=== PATIENT | male | born 1965 | race Caucasian/White ===

== ENCOUNTER 2024-08-31 05:31 | Observation (INO) ==
--- NOTE | 2024-08-22 14:40 | Anesthesiology Consultation ---
Date of Service August 22, 2024 Assessment & Plan (1) Encounter for pre-operative examination: - Check BSG DOS - Infectious disease screening: Per assessment on 08/22/24- No known recent infectious disease contacts or current infectious disease symptoms. - S/P cystoscopy, laser lithotripsy (01/20/24): LMA#4 at [facility]. No issues noted per post-op anesthesia progress note. Chart Review Chart Review: Acceptable Risk for Surgery and Patient NOT seen in Pre Admission Testing History Surgery Operation Date: 08/31/24 07:30 Proposed Procedures p Robotic Assisted Laparoscopic Radical Retropubic Prostatectomy, Possible Open, Possible Pelvic Lymph Node Dissection - Simón Darby MD Height/Weight Height: 5 ft 9 in Weight: 81.647 kg Allergies Allergy/AdvReac Type Severity Reaction Status Date / Time No Known Allergies Allergy Verified 08/22/24 13:54 Medications Home Medications Medication Instructions Recorded Confirmed Last Taken cholecalciferol (vitamin D3) 25 50 mcg PO QAM 10/08/23 08/22/24 01/19/24 05:00 mcg (1,000 unit) capsule losartan 100 mg tablet 100 mg PO QAM 10/08/23 08/22/24 01/19/24 05:00 metformin 500 mg tablet,extended 500 mg PO QPM 10/08/23 08/22/24 01/19/24 17:00 release 24 hr omeprazole 20 mg capsule,delayed 20 mg PO QAM 10/08/23 08/22/24 01/19/24 05:00 release tramadol 50 mg tablet 50 mg PO BID PRN Pain 10/08/23 08/22/24 01/19/24 05:00 Past Medical History Medical History Adrenal adenoma Abd/Pelvis CT 12/29/23: Stable 1.7 cm left adrenal adenoma Aneurysm of right renal artery Abd/Pelvis CT 12/29/23: Stable 1.7 cm Right Renal artery aneurysm Monitoring- stable/unchanged x 5 years per patient's BPH (benign prostatic hyperplasia) Chronic prostatitis Per records Diverticular disease Hx diverticulitis (-12/2023) > treated/resolved DM type 2 (diabetes mellitus, type 2) DM vs prediabetic Taking Metformin GERD (gastroesophageal reflux disease) Hearing loss Bilateral hearing aids History of kidney stones HTN (hypertension) Osteoarthritis Prostate cancer 06/09/2024- No chemo/XRT [facility] Sleep apnea Unable to tolerate CPAP Past Family History Family History Other No family history of adverse response to anesthesia Past Surgical History Surgical History History of ear surgery Impacted ear wax History of lithotripsy 12/23/2023 [facility]; LMA iGel #4, atraumatic x 1 Hx of prostate biopsy 05/2024 Social History Smoking Status: Never smoker Do You Dip or Chew Tobacco: No Hx Alcohol Use: No Hx Substance Use: No substance use type: does not use Lab Results Anesthesia Preop Results Results Anesthesia Widget: WBC 6.20 K/ul (4.8-10.8) 08/21/24 Hgb 14.9 g/dl (14.0-18.0) 08/21/24 Hct 44.7 % (42.0-52.0) 08/21/24 Plt 222 K/uL (130-400) 08/21/24 Na 137 mmol/L (136-145) 08/21/24 K 4.1 mmol/L (3.5-5.1) 08/21/24 Cl 104 mmol/L (98-107) 08/21/24 CO2 27 mmol/L (21-32) 08/21/24 BUN 24 mg/dl (6-23) H 08/21/24 Creat 1.53 mg/dl (0.6-1.4) H 08/21/24 Glucose Level 93 mg/dl (70-99(Fasting)) 08/21/24 Testing Laboratory Results Urine culture (08/21/24): no growth Electrocardiogram Date: 12/11/23 Findings: + NSR @ (73bpm) Early transition. Compared to 09/28/22, atrial enlargement criteria no longer present. T waves are more normal. Chest X-Ray Date: 12/11/23 Findings: + NAD Stress Test Date: 10/13/22 Type: nuclear Findings: + WNL myocardial perfusion imaging normal.
[2024-08-31] MEDS: HEPARIN SOD 5,000 UNIT/0.5 ML VIAL SC SCH (06:30)
[2024-08-31] MEDS: LACTATED RINGER'S 1,000 ML IV SCH (06:31)
[2024-08-31] MEDS: LR 15ML/HR IV SCH (06:31)
[2024-08-31] MEDS ORDERED: ATROPINE SULFATE 0.1 MG/ML 10ML SYR IV PRN (06:55)
[2024-08-31] MEDS ORDERED: HYDROmorphone INJ 1 MG/ML SYRINGE IV PRN (06:55)
[2024-08-31] MEDS ORDERED: ePHEDrine sulfate 50 MG/ML AMP IV PRN (06:55)
[2024-08-31] MEDS ORDERED: ROCURONIUM BROMIDE 10 MG/ML 5 ML VIAL IV ONE (06:57)
[2024-08-31] MEDS ORDERED: DEXAMETHASONE SOD INJ 4 MG/ML VIAL ONE (06:57)
[2024-08-31] MEDS ORDERED: PROPOFOL IV EMULSION 10 MG/ML 20 ML VIAL IV ONE (06:57)
[2024-08-31] MEDS ORDERED: ONDANSETRON INJ 2 MG/ML 2 ML VIAL ONE (06:57)
[2024-08-31] MEDS ORDERED: LIDOCAINE 2% 2 ML VIAL/AMP(20MG/ML) INFIL ONE (06:57)
[2024-08-31] MEDS ORDERED: SUGAMMADEX SODIUM 200 MG/2 ML VIAL IV ONE (06:58)
[2024-08-31] MEDS ORDERED: MIDAZOLAM HCL 1 MG/ML 2ML VIAL ONE (06:58)
[2024-08-31] MEDS ORDERED: KETAMINE HCL 10MG/ML SYR ONE (06:58)
[2024-08-31] MEDS ORDERED: fentaNYL citrate PF 100 MCG/2 ML VIAL ONE ×2 (06:58→09:08)
--- NOTE | 2024-08-31 07:13 | History & Physical Report ---
Date of Service August 31, 2024 Assessment & Plan (1) Prostate cancer: Plan: We reviewed the plan for robotic radical prostatectomy, possible bilateral pelvic lymph node dissection. We reviewed risks and benefits of surgery. He expressed understanding and would like to proceed with surgery. History of Present Illness Primary Care Provider: Germán Dumont This is a 59-year-old male followed by urology for prostate cancer. He presents to the OR today for robot-assisted radical prostatectomy. He denies any changes in his health. Allergies Allergy/AdvReac Type Severity Reaction Status Date / Time No Known Allergies Allergy Verified 08/31/24 06:05 Home Medications Medication Instructions Recorded Confirmed Type cholecalciferol (vitamin D3) 25 50 mcg PO QAM 10/08/23 08/31/24 History mcg (1,000 unit) capsule losartan 100 mg tablet 100 mg PO QAM 10/08/23 08/31/24 History metformin 500 mg tablet,extended 500 mg PO QPM 10/08/23 08/31/24 History release 24 hr omeprazole 20 mg capsule,delayed 20 mg PO QAM 10/08/23 08/31/24 History release tramadol 50 mg tablet 50 mg PO BID PRN Pain 10/08/23 08/31/24 History Past Med/Surg History Problem List Encounter for pre-operative examination Microscopic hematuria Medical History Adrenal adenoma Abd/Pelvis CT 12/29/23: Stable 1.7 cm left adrenal adenoma Aneurysm of right renal artery Abd/Pelvis CT 12/29/23: Stable 1.7 cm Right Renal artery aneurysm Monitoring- stable/unchanged x 5 years per patient's BPH (benign prostatic hyperplasia) Chronic prostatitis Per records Diverticular disease Hx diverticulitis (-12/2023) > treated/resolved DM type 2 (diabetes mellitus, type 2) DM vs prediabetic Taking Metformin GERD (gastroesophageal reflux disease) Hearing loss Bilateral hearing aids History of kidney stones HTN (hypertension) Osteoarthritis Prostate cancer 06/09/2024- No chemo/XRT [facility] Sleep apnea Unable to tolerate CPAP Surgical History History of ear surgery Impacted ear wax History of lithotripsy 12/23/2023 [facility]; LMA iGel #4, atraumatic x 1 Hx of prostate biopsy 05/2024 Family History Other No family history of adverse response to anesthesia Social History Smoking Status: Never smoker Second Hand Exposure: No; Do You Dip or Chew Tobacco: No; Tobacco Cessation Education Requested by Patient: No Hx Alcohol Use: No Hx Substance Use: No Preferred Language: [place] Citizen Communication Ability: Effective Food Assembler Required: No Beliefs That Will Affect Care: None Current Living Situation: Spouse Other Information That Helps Us Care for You: No Feels Safe at Home: Yes Safety Concerns: Feels Safe At This Time Assistive Devices: Glasses and Hearing Aid - Bilateral Physical Exam Physical Exam: Well-appearing, NAD Results & Data Vital Signs (Past 12 Hours) Vital Signs Temp Pulse Resp BP Pulse Ox O2 Del Method 08/31/24 06:03 37 C 71 20 139/93 99 Room Air
[2024-08-31] MEDS: ceFAZolin 2000MG 2,000 MG/15 ML SYR IV SCH ×2 (07:53→16:20)
[2024-08-31] MEDS: BUPIVACAINE 0.5 % 5 MG/1 ML MPF 30ML VIAL ONE (10:44)
--- NOTE | 2024-08-31 11:07 | Post Operative Brief Note ---
PG Immediate Post Op with CF Date of Surgery August 31, 2024 Pre & Post Diagnosis Operation Date: 08/31/24 07:30 Pre-Op Diagnosis: Prostate Cancer Post-Op Diagnosis: Prostate Cancer I identified the patient and participated in the time-out.: Yes Procedure Operation Date: 08/31/24 07:30 Actual Procedures p Robotic Assisted Laparoscopic Radical Retropubic Prostatectomy, Pelvic Lymph Node Dissection - Simón Darby MD Surgeon Simón Darby MD Tableau Report Developer PHYLLIS Poole Estimated Blood Loss 25 Findings Consistent with Post-Op Diagnosis Specimens Specimen Description: A.) Periprosthetic Fat B.) right Pelvic Lymph nodes C.) left Pelvic Lymph nodes D.) Prostate and Seminal Vesicles Drains Lovett Catheter (18f 10cc silcone) Anesthesia Type General Complications none Disposition Accompanied Patient To Recovery: Yes Disposition: Recovery Room Overlapping Procedure I was present for: the critical portions of procedure.
--- NOTE | 2024-08-31 11:29 | Operative Report ---
PG Post Operative Report Pre & Post Diagnosis Operation Date: 08/31/24 07:30 Pre-Op Diagnosis: Prostate Cancer Post-Op Diagnosis: Prostate Cancer I identified the patient and participated in the time-out.: Yes Procedure Operation Date: 08/31/24 07:30 Actual Procedures p Robotic Assisted Laparoscopic Radical Retropubic Prostatectomy, Pelvic Lymph Node Dissection(Not Applicable) - Simón Darby MD Surgeon Simón Darby MD Warehouseman PHYLLIS Poole Estimated Blood Loss 25 Findings Consistent with Post-Op Diagnosis Specimens 1) periprostatic fat 2) right pelvic lymph nodes 3) left pelvic lymph nodes 4) prostate, vas deferens, seminal vesicles Drains Lovett catheter per urethra Anesthesia Type General Complications none Disposition Accompanied Patient To Recovery: Yes Disposition: Recovery Room Indications This is a 59-year-old male followed by urology for prostate cancer. He presents the OR today for robotic radical prostatectomy. Description of Procedure The patient was identified in the preoperative holding area and informed consent was confirmed. He was then brought to the operating room where general anesthesia was initiated. He was placed supine on the operating room table with all pressure points appropriately padded. His abdomen and genitalia were prepped and draped in the usual sterile fashion and a timeout was performed. A 2 cm incision was made above the umbilicus and then a Veress needle was used to obtain access to the abdomen. Proper position was confirmed with the drop test and low initial insufflation pressure. The abdomen was insufflated with CO2 to a pressure of 15 mmHg. An 8 mm robotic port was placed in the incision and the robotic camera was inserted. The abdominal cavity was surveyed, demonstrating no injury to intra-abdominal contents. There was some scar tissue adhesive in the right colon to the pelvic sidewall.. The remaining robotic ports were placed under direct visualization, with 2 robotic ports on the left side and 1 robotic port on the right. A 5 mm sales assistants and salespersons port was placed in the right upper quadrant. The robot was then docked. I sharply divided the adhesions in the right lower quadrant to facilitate placement of a 12 mm sales assistants and salespersons port. Using electrocautery, the bladder was then dropped from the anterior wall of the abdomen, exposing the space of Retzius. This dissection was carried down to expose the pelvic brim and subsequently the anterior surface of the prostate and the endopelvic fascia. The fat overlying the anterior of the prostate was removed and sent for pathologic analysis, labeled as 'periprostatic fat'. The endopelvic fascia was then divided on each side to expose the lateral aspects of the prostate and the lateral aspects of the pedicles. A single 3-0 V-Loc suture was used to ligate the dorsal venous complex to prevent backbleeding in subsequent steps. The fourth arm of the robot was then used to put some gentle traction on the bladder, and the bladder neck was identified. Using electrocautery, the anterior bladder neck was dissected to expose the Lovett catheter, whose tip was removed from the bladder and held anteriorly. The posterior bladder neck dissection was then completed. At this point bilateral vas deferens were exposed and isolated. The vas deferens were cauterized and then divided. Bilateral seminal vesicles were dissected out as well. Denonvilliers fascia was then divided and the posterior prostate dissection was carried up as far as possible toward the urethra. The pedicles were then divided using combination of clips and sharp dissection, trying to use minimal electrocautery. On the right side, a partial nerve sparing approach was used. On the left side, a partial nerve sparing approach was used. Attention was turned anteriorly and the dorsal venous complex was divided using sharp dissection and electrocautery. The urethra was isolated and then divided sharply. At this point, the prostate was free and was placed in a specimen bag. Bilateral pelvic lymph node dissection was then performed, and the jerica tissue was sent for pathologic analysis. The pelvis was inspected and meticulous hemostasis was ensured. Double-armed V- Loc suture was then used to re-anastomose the bladder neck with the urethra. Once this was complete, the anastomosis was tested by instilling 120 mL of normal saline into the bladder. Satisfied that the anastomosis was watertight, the catheter balloon was inflated with 10 mL of normal saline. Surgicel and tiffany-seal was the lateral aspects of the pelvis and next to the dorsal venous complex for hemostasis. The robot was then undocked. The supraumbilical incision was extended and the prostate was extracted. 0 Vicryl suture was then used to close the fascia at this incision. All skin incisions were closed with 4-0 Monocryl suture and then a layer of Dermabond was applied. The patient was then awakened from anesthesia and was brought to the PACU in stable condition. PHYLLIS Poole acted as the bedside sales assistants and salespersons for the duration of the case. She assisted with gaining access, providing retraction and suction. Passing in sutures and applying clips as needed. She also helped with specimen extraction and closing. I attest to the content of the Intraoperative Record and any orders documented therein. Any exceptions are noted below.
[2024-08-31] MEDS: fentaNYL citrate PF 100 MCG/2 ML VIAL IV PRN (11:40)
[2024-08-31] MEDS: ONDANSETRON INJ 2 MG/ML 2 ML VIAL IV PRN (12:08)
[2024-08-31] MEDS ORDERED: oxyCODONE HCL IR 5 MG TAB (IMMEDIATE RELEASE) PO PRN (13:10)
[2024-08-31] MEDS ORDERED: MoRPHine SULFATE 4 MG/ML 1 ML CARP\\VIAL IV PRN (13:10)
[2024-08-31] MEDS ORDERED: MoRPHine SULFATE 2 MG/ML CARP IV PRN (13:10)
[2024-08-31] MEDS ORDERED: ONDANSETRON INJ 2 MG/ML 2 ML VIAL IV PRN (13:10)
[2024-08-31] MEDS ORDERED: PHARMACY GLYCEMIC MGMT CONSULT PRN (13:10)
[2024-08-31] MEDS: SODIUM CHLORIDE 0.9% 1,000 ML IV SCH (13:30)
[2024-08-31] MEDS: oxyCODONE HCL IR 5 MG TAB (IMMEDIATE RELEASE) PO PRN (13:35)
--- NOTE | 2024-08-31 14:02 | Pharmacy Report ---
Pharmacy Glycemic Short Note 2 - Date of Service August 31, 2024 - Glycemic Short BSG Results (Last 24 hours): 08/31/24 08/31/24 06:02 11:21 POC Glucose 110 H 150 H OUTPATIENT ANTIDIABETIC REGIMEN: * metformin 500mg po Q PM HbA1c to be drawn 09/01 with morning labs ASSESSMENT: * 59 year old male admitted for prostatectomy with possible bilateral pelvic lymph node dissection. Pharmacy was consulted post-op for glycemic control * BSG pre-op was 110. Patient received 4mg iv dexamethasone x 1 pre-op and post- op was 150mg/dL. * A weight based bolus insulin regimen with a stress of 2 was ordered to start this afternoon. * Will not order basal insulin for now due to only being on an oral diabetic agent at home and unsure of HbA1c upon initiation of a regimen. Will reassess need with further BSG readings. PLAN FOR INPATIENT GLYCEMIC CONTROL: * Hold outpatient oral diabetes medications * Basal insulin * hold for now * Bolus insulin * NovoLog per scale ACHS or Q6hrs while NPO * Goal Range: Low 110 mg/dL - High 140 mg/dL * Correction Factor: 25 mg/dL/unit * Nutritional / Prandial insulin per carb ratio of 1 unit per 10 grams CHO consumed
[2024-08-31] MEDS: INSULIN ASPART PER UNIT CHARGE SC SCH (14:16)
--- NOTE | 2024-08-31 16:57 | Anesthesiology Progress Note ---
Date of Service August 31, 2024 Anesthesia Post Procedure Vital Signs Vital Signs: Temp Pulse Pulse Resp BP Pulse Ox O2 Del Method 08/31/24 16:19 36.8 C 80 16 109/70 95 Room Air 08/31/24 15:19 82 16 113/75 94 Room Air 08/31/24 14:10 36.5 C 76 14 122/76 96 Room Air 08/31/24 13:41 76 16 128/88 97 Room Air 08/31/24 13:10 36.7 C 80 16 117/76 97 Room Air 08/31/24 12:45 75 14 123/75 98 Nasal Cannula 08/31/24 12:35 76 14 110/77 96 Nasal Cannula 08/31/24 12:25 76 15 113/76 96 Nasal Cannula 08/31/24 12:15 72 13 108/75 94 Nasal Cannula 08/31/24 12:05 36.5 C 71 17 121/77 97 Nasal Cannula 08/31/24 11:55 67 12 112/73 95 Nasal Cannula 08/31/24 11:45 72 16 106/71 96 Nasal Cannula 08/31/24 11:35 72 16 110/81 96 Nasal Cannula 08/31/24 11:25 73 22 121/77 98 Nasal Cannula 08/31/24 11:15 72 23 117/76 96 Nasal Cannula 08/31/24 11:06 36.7 C 71 30 H 70/47 L 96 Nasal Cannula 08/31/24 06:03 37 C 71 20 139/93 99 Room Air O2 Flow Rate 08/31/24 16:19 08/31/24 15:19 08/31/24 14:10 08/31/24 13:41 08/31/24 13:10 08/31/24 12:45 2 08/31/24 12:35 2 08/31/24 12:25 2 08/31/24 12:15 2 08/31/24 12:05 2 08/31/24 11:55 2 08/31/24 11:45 2 08/31/24 11:35 2 08/31/24 11:25 2 08/31/24 11:15 2 08/31/24 11:06 2 08/31/24 06:03 Pain Intensity Abdomen: Pain Intensity: 10 Transfer of Care Handoff Completed per policy Notes Mental Status: alert / awake / arousable and participated in evaluation Patient Amnestic to Procedure: Yes Nausea / Vomiting: adequately controlled Pain: adequately controlled Airway Patency, RR, SpO2: stable & adequate BP & HR: stable & adequate Hydration State: stable & adequate Anesthetic Complications: no major complications apparent and Pt Satisfied with anesthetic care
[2024-08-31] MEDS: ACETAMINOPHEN 325 MG TAB PO SCH (17:50)
[2024-08-31] MEDS: HEPARIN SOD 5,000 UNIT/0.5 ML VIAL SQ SCH (20:15)
[2024-08-31] MEDS: DOCUSATE SODIUM 100 MG CAP PO SCH (20:15)
[2024-09-01 06:26] LABS: Basophils # (auto) 0.01 K/uL (0.00-0.20); Basophils % (auto) 0.1 %; Eosinophils # (auto) 0.01 K/uL (0.00-0.50); Eosinophils % (auto) 0.1 %; Hematocrit (blood only) 34.1 % (42.0-52.0); Hemoglobin 11.3 g/dl (14.0-18.0); Immature Granulocytes # (auto) 0.05 K/uL (0.01-0.20); Immature Granulocytes % (auto) 0.5 %; Lymphocytes # (auto) 1.51 K/uL (1.20-3.40); Lymphocytes % (auto) 15.2 %; Mean Corpuscular Hemoglobin 30.8 pg (25.0-34.0); Mean Corpuscular Hgb Conc 33.1 g/dL (32.0-36.0); Mean Corpuscular Volume 92.9 fL (80.0-100.0); Mean Platelet Volume 10.7 fL (9.4-12.4); Monocytes # (auto) 1.22 K/uL (0.11-0.59); Monocytes % (auto) 12.3 %; Neutrophils # (auto) 7.14 K/uL (1.40-6.50); Neutrophils % (auto) 71.8 %; Platelet Count 180 K/uL (130-400); RDW Coefficient of Variation 12.8 % (11.5-14.5); RDW Standard Deviation 43.9 fL (36.4-46.3); Red Blood Count 3.67 M/uL (4.70-6.10); White Blood Count 9.94 K/ul (4.8-10.8)
[2024-09-01 06:37] LABS: BUN Creatinine Ratio 20.2 (10-20); Calcium 8.4 mg/dl (8.6-10.3); Creatinine Clr Calc Pharmacy 50.7 ml/min; Potassium 4.2 mmol/L (3.5-5.1)
[2024-09-01 07:01] VITALS: RESP 18; TEMP 97.7; O2SAT 99
[2024-09-01 07:40] LABS: Estimated Average Glucose 134 mg/dl; Hemoglobin A1C 6.3 % (4.5-5.6)
[2024-09-01] MEDS ORDERED: GLUCAGON FOR INJ 1 MG VIAL SQ PRN (07:45)
[2024-09-01] MEDS ORDERED: CARBOHYDRATES FOR HYPOGLYCEMIA PO PRN (07:45)
[2024-09-01] MEDS ORDERED: GLUCOSE 40% GEL 15 GM TUBE PO PRN (07:45)
[2024-09-01] MEDS ORDERED: GLUCOSE 10 TAB/TUBE PO PRN (07:45)
[2024-09-01] MEDS ORDERED: DEXTROSE 50% 50 ML SYRINGE IV PRN (07:45)
[2024-09-01] MEDS: PANTOprazole 40 MG TAB PO SCH (08:15)
[2024-09-01] MEDS: LOSARTAN POTASSIUM 50 MG TAB PO SCH (08:15)
--- NOTE | 2024-09-01 08:40 | Urology Progress Note ---
Date of Service September 01, 2024 Assessment & Plan (1) Prostate cancer: Plan: 59 yo/M POD #1 s/p Robotic Laparoscopic-Assisted Radical Retropubic Prostatectomy with Dr. Darby. - Doing well, progressing as expected - Afebrile, hemodynamically stable - Post op lab work reviewedcreatinine 1.63, WBC 9.94, hemoglobin 11.3 - Minimal pain - Tolerating regular diet - Encouraged OOB ambulation - Incisions appropriate - Lovett catheter intact, patent and draining clear yellow - Maintain Lovett catheter upon discharge - Expected clinical course reviewed, all questions answered - Patient is ready for discharge now, orders placed - Outpatient follow-ups in place Admission and Anticipated Discharge Date Admission Date: August 31, 2024 Subjective Patient seen and examined at bedside this morning. No acute issues overnight. Pain adequately controlled with Tylenol. He has been ambulating. Tolerating regular diet. Lovett draining clear yellow. Denies fever or chills. Review of Systems Constitutional: as per Subjective / HPI Genitourinary: + as per Subjective / HPI Physical Exam Constitutional: well developed and well nourished; no acute distress Respiratory: normal respiratory effort; no respiratory distress and no labored breathing Gastrointestinal (Abdomen): Inspection/Auscultation: abdomen normal to inspection Musculoskeletal: Head/Neck/Chest: normocephalic Skin: Incisions C/D/I with Dermabond Neurologic: moves all extremities and awake Psychiatric: Orientation: alert and oriented x 3 Genitourinary: Lovett draining clear yellow Results & Data Vital Signs (Past 12 Hours) Vital Signs Temp Pulse Pulse Resp BP Pulse Ox O2 Del Method 09/01/24 06:59 36.5 C 69 18 150/83 H 99 Room Air 09/01/24 03:31 37.2 C 63 16 123/76 97 Room Air 08/31/24 23:35 36.6 C 62 18 116/72 97 Room Air PG Care Time/CCT Total # of Minutes Spent Total Time Spent with Patient: Total time spent is greater than 50% in coordination of care (as documented) at patient's floor/unit and/or counseling patient: Coding Level of Care Code None Diagnoses Prostate cancer C61
[2024-09-01 09:12] VITALS: BP 109/70; PULSE 63
--- NOTE | 2024-09-01 10:00 | Pharmacy Report ---
Pharmacy Glycemic Short Note 2 - Date of Service September 01, 2024 - Glycemic Short BSG Results (Last 24 hours): 08/31/24 08/31/24 08/31/24 11:21 16:39 20:44 Glucose POC Glucose 150 H 136 H 122 H 09/01/24 09/01/24 05:38 07:31 Glucose 118 H POC Glucose 105 H OUTPATIENT ANTIDIABETIC REGIMEN: * metformin 500mg po Q PM HbA1c 6.3% on 09/01/24 ASSESSMENT: 09/01 * A total of 8 units of insulin were given yesterday (all were bolus). * No further steroids are ordered and BSG has been well controlled so bolus parameters were loosened with breakfast today. * No need for basal insulin based on BSG thus far. 08/31 * 59 year old male admitted for prostatectomy with possible bilateral pelvic lymph node dissection. Pharmacy was consulted post-op for glycemic control * BSG pre-op was 110. Patient received 4mg iv dexamethasone x 1 pre-op and post- op was 150mg/dL. * A weight based bolus insulin regimen with a stress of 2 was ordered to start this afternoon. * Will not order basal insulin for now due to only being on an oral diabetic agent at home and unsure of HbA1c upon initiation of a regimen. Will reassess need with further BSG readings. PLAN FOR INPATIENT GLYCEMIC CONTROL: * Hold outpatient oral diabetes medications * Basal insulin * hold for now * Bolus insulin * NovoLog per scale ACHS or Q6hrs while NPO * Goal Range: Low 110 mg/dL - High 140 mg/dL * Correction Factor: 35 mg/dL/unit * Nutritional / Prandial insulin per carb ratio of 1 unit per 15 grams CHO consumed
--- NOTE | 2024-09-01 10:14 | Discharge Summary ---
Date of Service September 01, 2024 Admission HPI Per Admitting Provider This is a 59-year-old male followed by urology for prostate cancer. He presents to the OR today for robot-assisted radical prostatectomy. He denies any changes in his health. Principal Diagnosis Prostate Cancer Discharge Exam Constitutional well developed and well nourished; no acute distress Respiratory normal respiratory effort; no respiratory distress and no labored breathing Gastrointestinal (Abdomen) Inspection/Auscultation: abdomen normal to inspection Musculoskeletal Head/Neck/Chest: normocephalic Neurologic moves all extremities and awake Psychiatric Orientation: alert and oriented x 3 Genitourinary Boss patent and draining clear Discharge Data Allergies Allergy/AdvReac Type Severity Reaction Status Date / Time No Known Allergies Allergy Verified 08/31/24 06:05 Procedures Performed Operation Date: 08/31/24 07:30 Actual Procedures p Robotic Assisted Laparoscopic Radical Retropubic Prostatectomy, Pelvic Lymph Node Dissection(Not Applicable) - Simón Darby MD Hospital Course (1) Prostate cancer: Plan 59 yo/M POD #1 s/p Robotic Laparoscopic-Assisted Radical Retropubic Prostatectomy with Dr. Darby. - Doing well, progressing as expected - Afebrile, hemodynamically stable - Post op lab work reviewedcreatinine 1.63, WBC 9.94, hemoglobin 11.3 - Minimal pain - Tolerating regular diet - Encouraged OOB ambulation - Incisions appropriate - Boss catheter intact, patent and draining clear yellow - Maintain Boss catheter upon discharge - Expected clinical course reviewed, all questions answered - Patient is ready for discharge now, orders placed - Outpatient follow-ups in place Total Time Total Time Spent Total Time Spent (In Minutes): 29 Discharge Plan Discharge Items Patient Disposition: Home - Self-Care Reason For Visit: Prostate Cancer Discharge Diagnosis: Prostate cancer Activity: Per Instructions section Lifting: No more than 10 pounds Bathing Comment: Okay to shower after discharge, no tub bath or soaking Sexual Activity: Wait until after follow-up appointment Exercise/Sports: Wait until after follow-up appointment Driving/Machine Use: No driving while taking prescription pain medication Non-emergency contact: Urologist Call non-emergency contact if: your pain is not controlled, your pain is worsening, your pain is unusual for you, you have a fever, your temperature is above 101, your wound has increased redness, your wound has increased drainage and your wound pain has increased Follow-up/Referrals: Simón Darby MD [Physician] - 09/12/24 9:00 am Germán Dumont [Primary Care Provider] - Diet: Regular Addtl Attending Provider Instructions: The surgery you had was: Robot-assisted radical prostatectomy with bilateral pelvic lymph node dissection. Please take all medications as prescribed and keep all follow-ups as scheduled. Please call our office at [phone] with any questions, concerns or need to reschedule appointments for any reason. We are happy to assist you Medications: Please take all medications as prescribed. For pain control, you can take tylenol every 6 hours. You can also take ibuprofen every 6 hours. If you have been prescribed a narcotic pain medication, please take this according to the instructions on the label. You have been prescribed a single dose of antibiotics (Bactrim) to be taken 1 hour prior to your appointment for boss catheter removal. Activity: We recommend having someone with you for the first few days after surgery to help care for you. For the first 2 weeks after surgery, we would like you to get up and walk around your house. However, we recommend limit physical activity that would increase your heart rate. This will allow your body to rest and heal. Take naps if you feel tired. Don't lift anything heavier than 10 pounds, mow the law or ride a bicycle until your follow-up appointment. Please avoid long car rides. Home Care: Unless directed otherwise, drink 6 to 8 glasses of water a day (enough to keep your urine light colored). This will also help keep a healthy flow of urine. We recommend using a stool softener such as colace or miralax for the first two weeks to avoid constipation. Boss Catheter care: Keep the catheter well secured with either a leg back or leg strap with large bag. Empty your bag when it's about half full. You may notice some blood in the bag. This is normal after surgery and while the catheter is in place. Use mild soap (such as Dove or Dial) and water to wash the catheter and the head of your penis daily, or more frequently if needed. Return to your normal diet, we encourage good protein intake to promote healing. You may shower as normal. Please avoid tub baths or soaking until catheter removed and incisions well healed. Wearing sweat pants while you have the catheter is recommended, they will be more comfortable. Follow-up We will have you come to the office in approximately 7 days for catheter removal. - Please remember to take your dose on antibiotics 1 hour prior to this appointment. We will review pathology results at that appointment and discuss further followup. Call [facility] at [phone] right away if you have any of the following: Chest pain or trouble breathing (call 911 or go to the hospital) Fever of 101F or higher, uncontrolled vomiting Heavy bleeding, clots, or bright red blood from the catheter Catheter that falls out or stops draining Foul-smelling discharge from your catheter Redness, swelling, warmth, or increased pain at your incision site Drainage, pus, or bleeding from your incision Pending Studies at Discharge: No Stand-Alone Forms: My [facility], Smoking Cessation Medications and DC Order Prescriptions: New sulfamethoxazole-trimethoprim [Bactrim DS] 800-160 mg tablet 1 tab PO ONCE 1 Days Qty: 1 0RF Continued tramadol 50 mg tablet 50 mg PO BID PRN (Reason: Pain) losartan 100 mg tablet 100 mg PO QAM omeprazole 20 mg capsule,delayed release(DR/EC) 20 mg PO QAM cholecalciferol (vitamin D3) 25 mcg (1,000 unit) capsule 50 mcg PO QAM metformin 500 mg tablet extended release 24 hr 500 mg PO QPM Discharge Orders: Discharge Order (Routine); Ordered 09/01/24 Ordered By: Brianna Morales Admission Data Admit Date/Time: 08/31/24 13:05 Attending Provider: Simón Darby Admit Provider: Simón Darby Primary Care Provider: Germán Dumont Other Interventions: Discharge Summary Assessment (RN) Last Done: 09/01/24 09:10 Coding Level of Care Code 85621 IN/OBS DISCH 30 MIN/LESS Diagnoses Prostate cancer C61
== END 2024-09-01 10:52 | disposition home or self-care (01) ==
LOC: ASU 05:31 → 3E 13:05 → INTOOBSV 13:05